=== PATIENT | female | born 2000 | race African-American/Black ===

== ENCOUNTER 2019-03-30 14:45 | Emergency (ER) | payer MEDICAID, OTHER ==
[~2019-03-30] VITALS: Ht 162.6 cm; Wt 77.1 kg
[2019-03-30 14:50] VITALS: BP 142/86
--- NOTE | 2019-03-30 15:15 | NUR ---
CALLED DR. Yash Lynch [phone] THIS OFFICE DOES NOT ACCEPT MEDICAL SO CALLED [facility] [phone]
[2019-03-30] MEDS ORDERED: PHENAZOPYRIDINE HCL 200 MG TABLET PO ONE (15:30)
[2019-03-30 15:41] LABS: APPEARANCE,URINE Clear (CLEAR); BILIRUBIN,URINE Negative (NEGATIVE); BLOOD, URINE Moderate Ery/uL (NEGATIVE); COLOR,URINE Yellow (YELLOW); KETONES,URINE Trace (NEGATIVE); LEUKOCYTE ESTERASE ,URINE Trace (NEGATIVE); NITRITE, URINE Negative (NEGATIVE); PH,URINE 5.5 (5.0-8.0); PROTEIN,URINE Trace mg/dl (NEGATIVE); UGLUCOSE Negative (NEGATIVE); UROBILINOGEN,URINE 0.2 EU/dL (0.2)
[2019-03-30 16:06] LABS: BACTERIA,URINE Few /HPF (None Seen); MUCUS,URINE Many /LPF (None Seen); SQUAMOUS EPITHELIAL CELL,UR Moderate /HPF (None Seen)
[2019-03-30] MEDS ORDERED: PHENAZOPYRIDINE HCL 200 MG TABLET ONE (16:06)
== END 2019-03-30 16:10 | disposition home or self-care (01) ==
LOC: ER 14:51
DX: N39.0 Urinary tract infection, site not specified (principal); Z88.6 Allergy status to analgesic agent
CPT/HCPCS: 81000-TC; 84703-TC; 87086-TC